=== PATIENT | male | born 1980 ===

== ENCOUNTER 2017-12-15 04:25 | Emergency (ER) | payer SELFPAY ==
[2017-12-15 04:31] VITALS: BMI 27.3
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
[2017-12-15 06:15] VITALS: BP 131/73; PULSE 90; RESP 17; TEMP 98.1; O2SAT 98
== END 2017-12-15 06:16 | disposition home or self-care (01) ==
LOC: ED 04:25 → EDBD 04:25 → ED 06:16
DX: F10.10 Alcohol abuse, uncomplicated (principal); Z04.1 Encounter for examination and observation following transport accident; V18.4XXA Pedal cycle driver injured in noncollision transport accident in traffic accident, initial encounter; Y93.55 Activity, bike riding; Y92.89 Other specified places as the place of occurrence of the external cause